=== PATIENT | female | born 1985 | race Two or more races ===

== ENCOUNTER 2016-02-26 08:12 | Observation (INO) | payer MEDICAID ==
[~2016-02-26 08:12] MED LIST: PRENPAK46 OR
[2016-02-26 09:19] LABS: Urine Bilirubin Negative (Negative); Urine Color Yellow (Yellow); Urine Glucose Normal (Normal); Urine Mucus FEW (None Seen); Urine Nitrite Negative (Negative); Urine RBC 37 /hpf (0 - 4); Urine Squamous Epithelial Cell FEW /hpf (<5); Urine Urobilinogen Normal (Negative); Urine pH 6.5 (5.0-8.0)
[2016-02-26 09:40] LABS: Urine Blood 2+ /uL (Negative); Urine Ketone 1+ (Negative)
== END 2016-02-26 10:55 | disposition home or self-care (01) | DRG 566 ==
LOC: LDRP 08:12
PROVIDERS: ADMIT Specialist; ATTEND Specialist
DX: O62.9 Abnormality of forces of labor, unspecified (principal); O26.893 Other specified pregnancy related conditions, third trimester; M54.5 Low back pain; Z3A.37 37 weeks gestation of pregnancy
CPT/HCPCS: 59025; 81001; 81002; G0378

== ENCOUNTER 2016-02-29 15:00 | Observation (INO) | payer MEDICAID | END 2016-02-29 16:45 | disposition home or self-care (01) | DRG 566 | LOC: LDRP 15:00 | PROVIDERS: ADMIT Specialist; ATTEND Specialist | DX: O62.9 Abnormality of forces of labor, unspecified (principal); O26.893 Other specified pregnancy related conditions, third trimester; R10.9 Unspecified abdominal pain; Z3A.38 38 weeks gestation of pregnancy | CPT/HCPCS: 59025; 81002; G0378 ==

== ENCOUNTER 2016-03-05 13:25 | Inpatient (IN) | payer MEDICAID ==
[~2016-03-05] VITALS: Ht 30.5 cm; Wt 0.5 kg
[2016-03-05] MEDS ORDERED: LACT. RINGERS/OXYTOCIN 20UNITS 1,000 ML IV ONE (13:41)
[2016-03-05] MEDS ORDERED: LACT. RINGERS/OXYTOCIN 20UNITS 1,000 ML IV SCH (13:42)
[2016-03-05] MEDS ORDERED: LACTATED RINGER'S 1,000 ML IV SCH (13:42)
[2016-03-05] MEDS ORDERED: LIDOCAINE 2%HCL (LOCAL ANESTH.) INJ 20ML MDV ONE (13:42)
[2016-03-05] MEDS ORDERED: DERMOPLAST 60ML BOTTLE TOP PRN (13:45)
[2016-03-05] MEDS ORDERED: LIDOCAINE 2%HCL (LOCAL ANESTH.) INJ 20ML MDV IJ ONE (13:45)
[2016-03-05] MEDS ORDERED: PHISODERM TOP SOLN 240ML BTL TOP PRN (13:45)
[2016-03-05] MEDS ORDERED: WITCH HAZEL-GLYCERIN PAD TOP PRN (13:45)
[2016-03-05] MEDS ORDERED: PENICILLIN G POT 5MIL/D5 50ML 50 ML IV ONE (13:45)
[2016-03-05] MEDS ORDERED: PHISODERM TOP SOLN 240ML BTL TOP ONE (13:59)
[2016-03-05] MEDS ORDERED: WITCH HAZEL-GLYCERIN PAD TOP ONE (13:59)
[2016-03-05] MEDS ORDERED: DERMOPLAST 60ML BOTTLE TOP ONE (13:59)
[2016-03-05 14:28] LABS: Basophils # (auto) 0.1 uL; Basophils % (auto) 1.8 % (0.0-2.0); Eosinophils # (auto) 0.1 uL; Eosinophils % (auto) 0.7 % (0.0-7.0); Hematocrit 39.4 % (36.0-46.0); Hemoglobin 12.7 g/dL (12.2-16.2); Lymphocytes # (auto) 2.6 uL; Mean Corpuscular Hemoglobin 28.2 pg (28.0-32.0); Mean Corpuscular Hgb Conc. 32.2 g/dL (32.0-36.0); Mean Corpuscular Volume 87.7 fL (80.0-100.0); Mean Platelet Volume 7.9 fL (7.4-10.4); Monocytes # (auto) 0.4 uL; Monocytes % (auto) 5.4 % (0.0-12.0); Neutrophils # (auto) 4.7 uL; Neutrophils % (auto) 59.1 % (37.0-80.0); Platelet Count (auto) 156 10^3/uL (140-450); Red Cell Distribution Width 12.9 % (11.6-16.0); White Blood Cell 7.9 10^3/uL (4.4-10.8)
[2016-03-05] MEDS ORDERED: IBUPROFEN 600 MG TAB PO PRN (14:30)
[2016-03-05] MEDS ORDERED: ACETAMINOPHEN 325 MG TAB PO PRN (14:30)
[2016-03-05 14:41] LABS: Urine Bilirubin Negative (Negative); Urine Color Yellow (Yellow); Urine Glucose Normal (Normal); Urine Ketone Negative (Negative); Urine Nitrite Negative (Negative); Urine RBC 24 /hpf (0 - 4); Urine Squamous Epithelial Cell MOD /hpf (<5); Urine WBC Clumps PRESENT /hpf (None Seen)
[2016-03-05 14:43] LABS: Urine Blood 1+ /uL (Negative)
[2016-03-05 14:48] LABS: INR 0.93 (0.9-1.15); Partial Thromboplastin Time 26.6 sec (22.64-33.71); Prothrombin Time 9.6 sec (9.37-12.3)
[2016-03-05] MEDS ORDERED: DOCUSATE CALCIUM 240 MG CAP PO SCH (15:00)
[2016-03-05 15:01] LABS: Albumin 2.4 g/dL (3.4-5.0); BUN/Creatinine Ratio 18.8; Bilirubin, Total 0.4 mg/dL (0.2-1.0); Calcium 8.7 mg/dL (8.5-10.1); Potassium 3.3 mmol/L (3.5-5.1); Total Protein 6.4 g/dL (6.4-8.2)
[2016-03-05] MEDS ORDERED: PENICILLIN G POTASSIUM 2,500,000 UNITS in D5W 5% 50 ML IV SCH (17:45)
[2016-03-05 19:50] VITALS: BP 108/64
[2016-03-05 23:27] VITALS: BP 91/45
[2016-03-06 03:59] VITALS: BP 88/51
[2016-03-06 07:30] VITALS: BP 103/58
[2016-03-06 11:56] VITALS: BP 95/62
[2016-03-06 16:07] VITALS: BP 104/58
== END 2016-03-06 17:55 | disposition home or self-care (01) | DRG 560 ==
LOC: OBSVTOIN 13:25 → LDRP 13:25
PROVIDERS: ADMIT Specialist; ATTEND Specialist
PROC: 10E0XZZ Delivery of Products of Conception, External Approach (ICD-10-PCS; principal; 2016-03-05)
DX: O62.3 Precipitate labor (principal); Z37.0 Single live birth; Z3A.38 38 weeks gestation of pregnancy
CPT/HCPCS: 36415; 59025; 59409; 80053; 81001; 85025; 85610; 85730; 86850; 86900; 86901; 96365; 96366; J2590; J7060

== ENCOUNTER 2018-12-03 09:03 | Observation (INO) | payer MEDICAID ==
[~2018-12-03] VITALS: Ht 157.5 cm; Wt 68.9 kg
[2018-12-03 09:34] VITALS: BP 96/51
[2018-12-03] MEDS ORDERED: LACTATED RINGER'S 1,000 ML IV ONE (10:41)
[2018-12-03] MEDS: TERBUTALINE SULFATE 1 MG/ML 1ML VIAL SC SCH ×4 (10:45→12:38)
== END 2018-12-03 13:44 | disposition home or self-care (01) | DRG 566 ==
LOC: ER 09:09 → LDRP 09:40 → TELE 10:08 → LDRP 10:09
PROVIDERS: ADMIT Specialist; ATTEND Specialist
DX: O26.899 Other specified pregnancy related conditions, unspecified trimester (principal); Z3A.00 Weeks of gestation of pregnancy not specified
CPT/HCPCS: 59025; 76815; 81002; 94760; 96372; G0378; J3105; 96365

== ENCOUNTER 2018-12-10 09:38 | Observation (INO) | payer MEDICAID ==
[2018-12-10] MEDS ORDERED: NIF10C GT (12:52)
== END 2018-12-10 13:11 | disposition home or self-care (01) | DRG 563 ==
LOC: LDRP 11:55
PROVIDERS: ADMIT Obstetrics & Gynecology; ATTEND Obstetrics & Gynecology
DX: O60.03 Preterm labor without delivery, third trimester (principal); Z3A.32 32 weeks gestation of pregnancy
CPT/HCPCS: 59025; 81002; G0378

== ENCOUNTER 2018-12-17 11:35 | Observation (INO) | payer MEDICAID ==
[~2018-12-17 11:35] MED LIST changes: +NIF10C GT
== END 2018-12-17 12:22 | disposition home or self-care (01) | DRG 563 ==
LOC: LDRP 11:35
PROVIDERS: ADMIT Specialist; ATTEND Specialist
DX: O60.03 Preterm labor without delivery, third trimester (principal); Z3A.33 33 weeks gestation of pregnancy
CPT/HCPCS: 59025; 81002; G0378

== ENCOUNTER 2018-12-24 11:40 | Observation (INO) | payer MEDICAID | END 2018-12-24 12:43 | disposition home or self-care (01) | DRG 563 | LOC: LDRP 11:40 | PROVIDERS: ADMIT Obstetrics & Gynecology; ATTEND Obstetrics & Gynecology | DX: O60.03 Preterm labor without delivery, third trimester (principal); Z3A.34 34 weeks gestation of pregnancy | CPT/HCPCS: G0378 ==

== ENCOUNTER 2018-12-31 11:41 | Observation (INO) | payer MEDICAID ==
[2018-12-31 12:46] LABS: Urine Bacteria MOD /hpf (None Seen); Urine Blood Negative /uL (Negative); Urine Mucus FEW (None Seen); Urine Specific Gravity 1.011 (1.001-1.035); Urine WBC 2 /hpf (0 - 5)
== END 2018-12-31 12:25 | disposition home or self-care (01) | DRG 563 ==
LOC: LDRP 11:41
PROVIDERS: ADMIT Specialist; ATTEND Specialist
DX: O60.03 Preterm labor without delivery, third trimester (principal); O23.43 Unspecified infection of urinary tract in pregnancy, third trimester; O62.9 Abnormality of forces of labor, unspecified; Z3A.35 35 weeks gestation of pregnancy
CPT/HCPCS: 59025; 81001; 81002; G0378

== ENCOUNTER 2019-01-14 23:05 | Inpatient (IN) | payer MEDICAID ==
[~2019-01-14] VITALS: Ht 157.5 cm; Wt 71.2 kg
[2019-01-15] MEDS ORDERED: LACTATED RINGER'S 1,000 ML IV SCH ×2 (00:28→01:26)
[2019-01-15] MEDS ORDERED: LIDOCAINE 1% (LOCAL ANESTH.) PF 5ml SDV XX ONE (00:30)
[2019-01-15 01:08] LABS: Basophils # (auto) 0.1 uL; Basophils % (auto) 0.6 % (0.0-2.0); Eosinophils # (auto) 0.1 uL; Eosinophils % (auto) 0.8 % (0.0-7.0); Hematocrit 38.6 % (36.0-46.0); Hemoglobin 13.3 g/dL (12.2-16.2); Lymphocytes # (auto) 2.2 uL; Mean Corpuscular Hemoglobin 29.4 pg (28.0-32.0); Mean Corpuscular Hgb Conc. 34.5 g/dL (32.0-36.0); Mean Corpuscular Volume 85.2 fL (80.0-100.0); Monocytes # (auto) 0.5 uL; Monocytes % (auto) 5.3 % (0.0-12.0); Neutrophils # (auto) 6.6 uL; Neutrophils % (auto) 70.3 % (37.0-80.0); Nucleated Red Blood Cells % 0.1 %; Platelet Count (auto) 188 10^3/uL (140-450); Red Blood Cells 4.53 10^6/uL (4.0-5.20); Red Cell Distribution Width 14.1 % (11.8-14.3); White Blood Cell 9.4 10^3/uL (4.4-10.8)
[2019-01-15 01:11] LABS: Urine Bacteria FEW /hpf (None Seen); Urine Blood 1+ /uL (Negative); Urine Specific Gravity 1.008 (1.001-1.035); Urine WBC 15 /hpf (0 - 5)
[2019-01-15 01:21] LABS: INR 0.94 (0.9-1.15); Partial Thromboplastin Time 25.9 sec (23.64-32.05)
[2019-01-15 01:25] LABS: Albumin 2.7 g/dL (3.4-5.0); Potassium 3.4 mmol/L (3.5-5.1)
[2019-01-15 01:27] LABS: BUN/Creatinine Ratio 9.7
[2019-01-15] MEDS ORDERED: PENICILLIN G POT 5MIL/D5 50ML 50 ML IV ONE (01:30)
[2019-01-15] MEDS ORDERED: PENICILLIN G POTASSIUM 2,500,000 UNITS in D5W 5% 50 ML IV SCH ×2 (01:30→06:00)
[2019-01-15 01:32] LABS: Bilirubin, Total 0.3 mg/dL (0.2-1.0); Total Protein 7.2 g/dL (6.4-8.2)
[2019-01-15] MEDS ORDERED: METHYLERGONOVINE MALEATE 0.2 MG/ML AMP IM PRN (02:15)
[2019-01-15] MEDS ORDERED: LIDOCAINE 2%HCL (LOCAL ANESTH.) INJ 20ML MDV ID ONE (02:15)
[2019-01-15] MEDS ORDERED: DIPHENOXYLATE W/ATROPINE 2.5 MG TAB PO ONE (02:45)
[2019-01-15] MEDS ORDERED: CARBOPROST TROMETHAMINE 250 MCG/1ML VIAL IM ONE (02:45)
[2019-01-15] MEDS ORDERED: ONDANSETRON HCL 4 MG/2 ML VIAL IV PRN (02:45)
[2019-01-15 02:58] LABS: Uric Acid 3.7 mg/dL (2.6-6.0)
[2019-01-15] MEDS: WITCH HAZEL-GLYCERIN PAD TOP PRN ×2 (06:20→07:47)
[2019-01-15] MEDS: PHISODERM TOP SOLN 240ML BTL TOP PRN ×2 (06:20→07:47)
[2019-01-15] MEDS: DERMOPLAST 60ML BOTTLE TOP PRN ×2 (06:20→07:47)
--- NOTE | 2019-01-15 06:35 | NUR ---
PT REPORT RECEIVED FROM Darlene DAVIDSON ON STABLE PATIENT. PT IN BED, HIGH FOWLERS POSITION. BED IS LOCKED AND IN LOWEST POSITION, 2 SIDE RAILS UP, CALL LIGHT WITHIN REACH. RESPIRATIONS ARE EVEN AND NONLABORED, PT DENIES ANY PAIN, PTS FUNDUS IS FIRM, 1 BELOW UMBILICUS, SMALL BLEEDING NOTED. WILL CONTINUE TO MONITOR. Addendum: 01/15/19 at 0838 by Joan Mcfarland RN PTS FUNDUS IS FIRM, AT 1 ABOVE UMBILICUS, MODERATE BLEEDING NOTED. ICE PACK APPLIED TO PTS PERINEUM.
[2019-01-15] MEDS ORDERED: ACETAMINOPHEN 325 MG TAB PO PRN (06:45)
[2019-01-15 07:47] VITALS: BP 127/58
--- NOTE | 2019-01-15 07:55 | NUR ---
Ambulation: Patient OOB with standby assistance by RN. Patient ambulated to bathroom with steady gait. Patient able to void 800ml pink tinged urine without difficulty. Pericare teaching provided with returned demonstration by patient. Clean gown provided and bed linen changed. Patient ambulated back to bed with steady gait and no distress noted. Pt denies any dizziness, blurred vision or pain. Will continue to monitor.
--- NOTE | 2019-01-15 10:02 | NUR ---
VOID #2 PT AMBULATED TO BATHROOM VIA STEADY GAIT, PT VOIDED 900ML PINK TINGED URINE WITHOUT DIFFICULTY. NO DISTRESS NOTES. PT DENIES ANY PAIN AT THIS TIME. WILL CONTINUE OT MONITOR.
[2019-01-15] MEDS ORDERED: LACTATED RINGER'S 1,000 ML IV ONE (10:30)
[2019-01-15 10:58] VITALS: BP 104/58
[2019-01-15] MEDS: IBUPROFEN 600 MG TAB PO PRN (12:49)
[2019-01-15 15:15] VITALS: BP 94/53
--- NOTE | 2019-01-15 16:10 | NUR ---
DR. YOO AT [facility]ES [facility], [facility], ANSWERED NEVER ON QUESTION 10. PER DR. YOO ORDERS RECEIVED FOR PT TO FOLLOW [facility] AT 9AM FOR FOLLOW UP VISIT. READ BACK AND VERIFIED ORDERS. WILL CARRY OUT.
[2019-01-15 19:30] VITALS: BP 100/58
[2019-01-15 23:10] VITALS: BP 96/60
[2019-01-16] VITALS (7 sets, daily range): BP systolic 98–119; BP diastolic 51–70
[2019-01-16] MEDS: IBUPROFEN 600 MG TAB PO PRN ×2 (03:50→10:17)
[2019-01-16 07:06] LABS: RPR Non Reactive (Non Reactive)
--- NOTE | 2019-01-16 11:06 | NUR ---
DR. ZULETA AT PT BEDSIDE FOR PT ASSESSMENT, DR. ZULETA NOTIFIED PT SCORED AN 11 ON THE [place] DEPRESSION SCALE, QUESTION 10- ANSWERED NEVER. PT STATES THAT SHE FEELS ANXIOUS AND OVERWHELMED AND DOES NOT HAVE ADEQUATE SUPPORT. ORDERS RECEIVED FROM DR. ZULETA FOR ECHOCARDIOGRAPHER CONSULT AND TELE PSYCH CONSULT, HOLDING DISCHARGE. READ BACK AND VERIFIED ORDERS. WILL CARRY OUT.
--- NOTE | 2019-01-16 12:00 | NUR ---
PAGED GAMMA OPERATOR REGARDING CONSULT, AWAITING CALL BACK.
--- NOTE | 2019-01-16 12:29 | NUR ---
MAINOR FROM CASE MANAGEMENT CALLED BACK. NOTIFIED MAINOR OF CONSULT. PER MAINOR, SHE WILL REVIEW PTS INFORMATION AND CALL BACK. AWAITING CALL BACK.
--- NOTE | 2019-01-16 13:29 | NUR ---
GWEN FROM HAT [facility] CALLED BACK REGARDING CONSULT. PER GWEN MORENO, SINCE PT HAS A TELE PSYCH CONSULT, PAGE HAT MARKER WITH THE PSYCHIATRISTS RECOMMENDATIONS AND THEN THEY WILL TALK WITH THE PATIENT, IF ITS AFTER 5PM TODAY, BEATRICE HIDALGO.
--- NOTE | 2019-01-16 14:40 | NUR ---
[facility] TELEMED CALLED [facility] TELEMED AT [phone] AND SPOKE WITH SPENSER REGARDING TELE PSYCH CONSULT FOR PATIENT. NOTIFIED SPENSER PATIENT IS AUSTRALIAN SPEAKING. PER SPENSER, HE DOESN'T KNOW IF THE PSYCHIATRIST AVAILABLE SPEAKS AUSTRALIAN AND PT WILL NEED A SENIOR PRODUCT INTEGRITY ENGINEER. NOTIFIED ANALYTICS MANAGER MARQUISE AND SHE STATED THAT [facility] DOESN'T HAVE CERTIFIED AUSTRALIAN TRANSLATORS, ONLY THER BLUE PHONES. 1446- CALLED [facility] TELEMED AND SPOKE WITH BRITTA NOTIFYING HER NO SENIOR PRODUCT INTEGRITY ENGINEER AVAILABLE. BRITTA STATED SHE WILL REACH OUT TO THE DOCTOR TO SEE IF THEY SPEAK AUSTRALIAN AND WILL CALL BACK. AWAITING CALL BACK.
--- NOTE | 2019-01-16 15:23 | NUR ---
IV removal Pt states her IV is "falling out." RN assessed patients IV, IV is dangling from pts hand, catheter intact. IV DC'd with clean sterile technique, catheter fully intact. Pressure dressing applied to site. Patient tolerated well.
--- NOTE | 2019-01-16 15:40 | NUR ---
[facility] CALLED [facility]LE[facility] AT [phone] AND SPOKE WITH ALIN REGARDING TELE PSYCH CONSULT FOR PATIENT. NOTIFIED ALIN THAT SINCE THE HOSPITAL DOES NOT HAVE CERTIFIED VIETNAMESE TRANSLATORS AND NO PSYCHIATRIST IS AVAILABLE THAT SPEAKS VIETNAMESE, RN WILL USE POWER SHEAR OPERATOR BLUE PHONE AT BEDSIDE TO COMPLETE CONSULT. ALIN STATED SHE WILL NOTIFY PSYCHIATRIST TO START CONSULT. AWAITING PSYCHIATRIST CONSULT.
--- NOTE | 2019-01-16 16:14 | NUR ---
DR. GUEVARA PSYCHIATRIST ON TELE CAMERA FOR CONSULT. THIS RN USED BLUE SEQUENCING MACHINE OPERATOR PHONE FOR CONSULT. SEQUENCING MACHINE OPERATOR DAMIAN, SEQUENCING MACHINE OPERATOR ID #[id number]. CONSULT ENDED AT 1643. DR. GUEVARA STATED HE WILL FAX REPORT WITH HIS RECOMMENDATIONS. AWAITING FAX.
--- NOTE | 2019-01-16 16:58 | NUR ---
SHEET ROCK TAPER MAINOR FROM CASE MANAGEMENT CALLED, NOTIFIED HER THAT PTS TELE PSYCH CONSULT JUST COMPLETED AND AWAITING DOCTORS RECOMMENDATIONS. MAINOR STATED SHE WILL NOTIFY GWEN.
--- NOTE | 2019-01-16 17:22 | NUR ---
DR. ZULETA AT NURSES STATION, NOTIFIED PATIENTS TELE PSYCH CONSULT IS COMPLETED. AWAITING PSYCHIATRISTS RECOMMENDATIONS, WILL NOTIFY WITH ALL RECOMMENDATIONS.
--- NOTE | 2019-01-16 17:41 | NUR ---
TELE PSYCH CONSULT FAX RECEIVED. DR. GUEVARA RECOMMENDS TO DISCHARGE PT HOME WITH COLLATERAL ASSISTANCE POSSIBLY WITH FAMILY AND 15/09 FOR NEXT WEEK AT MINIMUM UNTIL PATIENT FOLLOWS UP WITH AN OP PSYCHIATRIST. START ZOLOFT 50MG QD WITH THE APPROVAL OF HER DOG POUND ATTENDANT AND ONLY IF PT AGREES TO SUCH. TRAZADONE 50MG QHS NEEDED FOR INSOMNIA. PATIENT TO FOLLOW UP WITH AN OP PSYCHIATRY SX. IN ONE WEEK. NOTIFIED DR. FERRARO OF DR. CHOUDHURY'S RECOMMENDATIONS, STOCK REPAIRER CONSULT IS ORDERED ADN MADE AWARE THAT TELE PSYCH CONSULT IS COMPLETED. ORDERS RECEIVED FROM DR. ZULETA TO START PT ON ZOLOFT 50MG PO EVERY DAY. READ BACK AND VERIFIED ORDERS. WILL CARRY OUT.
--- NOTE | 2019-01-16 17:58 | NUR ---
CASE MANAGEMENT MAINOR CALLED BACK AND STATED A [employer] SPEAKING KNIFER UP WILL COME BY TOMORROW TALK WITH PATIENT AND WILL GIVE HER INFORMATION FOR CRISIS CENTERS ANT OUTPATIENT PSYCHIATRY. MAINOR GAVE INFORMATION TO GIVE THE PATIENT FOR THE [facility]IS C[facility]. WILL NOTIFY POWER GRADER OPERATOR RN. [facility] C[facility] [phone] [id number] [address] [phone]
--- NOTE | 2019-01-16 18:30 | NUR ---
PT REPORT GIVEN TO Madelyn ROQUE'S RN ON STABLE PATIENT, Madelyn ROQUE'S GIVEN FAXED TELE PSYCH CONSULT RECOMMENDATIONS, RELINQUISHED CARE.
[2019-01-17 03:18] VITALS: BP 96/63
--- NOTE | 2019-01-17 09:21 | NUR ---
Prescription called in Prescription for Zoloft 50mg PO DAILY X 30 called in to [facility]. Pt to leave with prescription in hand. Notified Cl Chou CNM prescription called in.
--- NOTE | 2019-01-17 10:00 | NUR ---
Called Tele psych Darlene EGAN regarding inconsistent tele psych eval. states he will amend report by 1400.
--- NOTE | 2019-01-17 10:53 | NUR ---
Dr. Baker called back and states 1st report was "entered incorrectly" and "please see amended report".
[2019-01-17 11:26] VITALS: BP 118/73
--- NOTE | 2019-01-17 12:12 | NUR ---
Discharge instruction given to patient in English . Patients family member , and FOB brother Diogo Walden and obgyn specialist Татьяна speaks Filipino and English to translate all discharge teaching. Blue telephone used to translate in English any question and concerns of dischargee teaching . pastry supervisor on blue phone name is Gilma #[id number] who also translated in English to patient. All questions and concerns addressed. patient also returned understand of all discharge instruction in Filipino . Patient speaks some Filipino. Discharge instructions given as ordered. Pt encouraged to follow up with TESTER OPERATOR as instructed. Appointment made for tomorrow at Dr. Macias's office here at [facility] at 0930 am, and at [facility] on Thursday at 0945 am .Patient is to follow up at psychiatry walk in clinic at [address] [place] [address]. Phone number [phone] today after leaving [facility]. Resource pamphlets to patients. Patient and family member verbalized back to me the understanding of all discharge instructions. Medication Zoloft 50 mg/po [facility] and given to patient. All questions and concerns addressed. Patient verbalized understanding. Medication reconciliation completed and copy given to patient. Patient refused influenza and t-tap vaccines. Patient encouraged to prepare to depart unit.
--- NOTE | 2019-01-17 12:25 | NUR ---
TALKED TO PATIENT AND FAMILY MEMBER FOB, MOTHER IN LAW ZEYAD, AND FOB BROTHER NEGAR ALL AT BEDSIDE. PER FOB AND PATIENT SHE WILL HAVE FAMILY MEMBER MOTHER IN-LA[place] AND SISTER-IN LAW AND FOB WITH HER TO HELP AT HOME FOR A FEW WEEKS OR UNTIL PATIENT FOLLOW UPS WITH AN OP PSYCHIATRIST PER MD DOROTHY GUEVARA RECOMMENDED D/C HOME WITH COLLATERAL ASSISTANCE. PATIENT REFUSED MEDICATION TRAZODONE 50 MG/QHS PRN FOR SEVERE INSOMNIA PER MD DOROTHY GUEVARA RECOMMENDED.
[2019-01-17] MEDS ORDERED: SERTRALINE HCL 50 MG TAB PO SCH (22:00)
== END 2019-01-17 12:25 | disposition home or self-care (01) | DRG 560 ==
LOC: LDRP 23:05 → OBSVTOIN 01-15 00:20 → LDRP 01-15 22:48
PROVIDERS: ADMIT Obstetrics & Gynecology; ATTEND Obstetrics & Gynecology
PROC: 10E0XZZ Delivery of Products of Conception, External Approach (ICD-10-PCS; principal; 2019-01-15)
DX: O69.81X0 Labor and delivery complicated by cord around neck, without compression, not applicable or unspecified (principal); O99.344 Other mental disorders complicating childbirth; F32.9 Major depressive disorder, single episode, unspecified; Z37.0 Single live birth; Z3A.37 37 weeks gestation of pregnancy
CPT/HCPCS: 36415; 59025; 59409; 76815; 80053; 81001; 81002; 84112; 84550; 85025; 85610; 85730; 86592; 86790; 86850; 86900; 86901; 94760; 96361; 96365; 96366; 96372; G0378; J2540; J7060